=== PATIENT | female | born 1975 | race American Indian/Alaskan Native ===

== ENCOUNTER 2017-04-11 21:50 | Inpatient (IN) | payer OTHER ==
[2017-04-11] MEDS ORDERED: ZOFRAN ODT ONE (22:06)
[2017-04-11] MEDS ORDERED: ZOFRAN ODT PO ONE (22:09)
[2017-04-11 22:40] LABS: Alanine Aminotransferase 18 units/L (7-56); Albumin 4.2 g/dL (3.9-5); Alkaline Phosphatase 88 units/L (35-129); Anion Gap 20 mmol/L; Blood Urea Nitrogen 10 mg/dL (7-17); Calcium 9.5 mg/dL (8.4-10.2); Carbon Dioxide 23 mmol/L (22-30); Chloride 96.5 mmol/L (98-107); Glucose 126 mg/dL (65-100); Lipase 43 units/L (13-60); Potassium 3.9 mmol/L (3.6-5.0); Sodium 136 mmol/L (137-145); Total Protein 8.3 g/dL (6.3-8.2)
[2017-04-11 22:54] LABS: Basophils % (Auto) 0.6 % (0.0-1.8); Eosinophils % (Auto) 1.2 % (0.0-4.3); Hematocrit 36.4 % (30.3-42.9); Mean Corpuscular HGB Conc 33 % (30-34); Mean Corpuscular Hemoglobin 30 pg (28-32); Mean Corpuscular Volume 90 fl (79-97); Platelet Count 268 K/mm3 (140-440); Red Blood Count 4.03 M/mm3 (3.65-5.03); Red Cell Distribution Width 15.2 % (13.2-15.2); White Blood Count 4.8 K/mm3 (4.5-11.0)
[2017-04-12] MEDS ORDERED: NACL 0.9% 1000 ML 1,000 ML IV ONE ×2 (06:10→11:05)
[2017-04-12] MEDS ORDERED: ZOFRAN IV ONE (06:10)
[2017-04-12] MEDS ORDERED: MORPHINE IV ONE ×2 (06:12→12:15)
--- NOTE | 2017-04-12 06:43 | Emergency Department Report ---
HPI - General Chief Complaint: Nausea/Vomiting/Diarrhea Time Seen by Provider: 04/12/17 06:05 - HPI HPI: This is a 41-year-old Afro-[place] female presents to the emergency department from home with complaint of nausea, vomiting and generalized abdominal discomfort since about 4:00 yesterday afternoon after the patient ate ice cream from [employer]. She is not taking anything for symptoms prior to presentation. She has a past medical history of thyroidectomy and hypothyroidism. She has a history of tubal ligation and partial hysterectomy as well as previous history of gastric bypass. No recent travel or sick contacts at home. She has a primary care physician but has not been able to see them regarding her symptoms. ED Past Medical Hx - Past Medical History Hx Seizures: Yes Additional medical history: hypoglycemia, thyroid radiation - Surgical History Additional Surgical History: thyroidectomy,tubiligation,partial hysterecomy, gastric bypass - Social History Smoking Status: Never Smoker Substance Use Type: None - Medications Home Medications: Home Medications Medication Instructions Recorded Confirmed Last Taken Type Levothyroxine [Synthroid] 225 mcg PO QAM 04/12/17 04/12/17 Unknown History OXcarbazepine [Trileptal] 900 mg PO BID 04/12/17 04/12/17 Unknown History ED Review of Systems ROS: Stated complaint: ABD PAIN/CHILLS/LEG NUMBNESS Other details as noted in HPI Comment: All other systems reviewed and negative Constitutional: denies: chills, fever Eyes: denies: eye pain, eye discharge, vision change ENT: denies: ear pain, throat pain Respiratory: denies: cough, shortness of breath, wheezing Cardiovascular: denies: chest pain, palpitations Gastrointestinal: abdominal pain, nausea, vomiting Genitourinary: denies: urgency, dysuria, discharge Musculoskeletal: denies: back pain, joint swelling, arthralgia Skin: denies: rash, lesions Neurological: denies: headache, weakness, paresthesias Physical Exam - Physical Exam Vital Signs: Vital Signs 04/11/17 04/12/17 04/12/17 21:56 03:08 05:06 Temperature 98 F 97.8 F 98.3 F Pulse Rate 68 81 Respiratory 20 18 18 Rate Blood Pressure 142/84 120/77 Blood Pressure 110/74 [Right] O2 Sat by Pulse 97 100 100 Oximetry 04/12/17 05:11 Temperature Pulse Rate Respiratory 18 Rate Blood Pressure Blood Pressure [Right] O2 Sat by Pulse 100 Oximetry Physical Exam: GENERAL: The patient is well-developed well-nourished. HEENT: Normocephalic. Atraumatic. Extraocular motions are intact. Patient has moist mucous membranes. Pupils equal reactive to light bilaterally. NECK: Supple. Trachea is midline. CHEST/LUNGS: Clear to auscultation. There is no respiratory distress noted. HEART/CARDIOVASCULAR: Regular. There is no tachycardia. There is no gallop rub or murmur. ABDOMEN: Abdomen is soft. There is generalized tenderness to palpation of the abdomen. No guarding or rebound tenderness. Patient has normal bowel sounds. There is no abdominal distention. SKIN: There is no rash. There is no edema. There is no diaphoresis. NEURO: The patient is awake, alert, and oriented. The patient is cooperative. The patient has no focal neurologic deficits. The patient has normal speech. MUSCULOSKELETAL: There is no tenderness or deformity. There is no limitation range of motion. There is no evidence of acute injury. ED Course Vital Signs 04/11/17 04/12/17 04/12/17 21:56 03:08 05:06 Temperature 98 F 97.8 F 98.3 F Pulse Rate 68 81 Respiratory 20 18 18 Rate Blood Pressure 142/84 120/77 Blood Pressure 110/74 [Right] O2 Sat by Pulse 97 100 100 Oximetry 04/12/17 05:11 Temperature Pulse Rate Respiratory 18 Rate Blood Pressure Blood Pressure [Right] O2 Sat by Pulse 100 Oximetry ED Medical Decision Making - Lab Data Result diagrams: 04/11/17 22:07 04/11/17 22:07 - Radiology Data Radiology results: report reviewed, image reviewed interpreted by me: Abdominal x-ray shows non-specific nonobstructive bowel gas. CT ABDOMEN AND PELVIS WITH CONTRAST INDICATION: Abdominal pain. COMPARISON: None similar. FINDINGS: Abdomen and pelvis CT performed following intravenous administration of 100 cc of Omnipaque 300. LUNG BASES: Air filled distal esophageal prominence, nonspecific for gastroesophageal reflux and/or hiatal hernia, amongst others. No effusions. ABDOMEN: Minimal perihepatic ascites anteriorly, axial image 45, series 2. Post cholecystectomy slight central intrahepatic biliary prominence. CBD caliber at the curt hepatis estimated at 7 mm. Stomach, duodenum and proximal jejunum distended with fluid with abrupt caliber transition in the left mid abdomen near small bowel anastomosis site, axial series 2, images 161-206. Remainder nonopacified GI tract evaluation limited, though grossly nonobstructive. Mild colonic stool. Few postsurgical changes along the proximal stomach noted, more so superomedially as on axial images 57-92. Patent portal vein. Liver, spleen, pancreas, adrenals, nonaneurysmal abdominal aorta, IVC and kidneys otherwise within normal limits. No size significant adenopathy. Mesenteric root haziness however noted surrounding the patent SMA and its branches in the mid to lower abdomen as on axial images 175-260, amongst others. Mild similar retroperitoneal stranding/haziness as well. Slight twisting of the mesentery also not excluded in part postsurgical as on axial images 160-220, amongst others. Small fat-containing umbilical hernia with a transverse neck of 0.9 cm. PELVIS: Heterogeneous uterus with multiple fibroids, the largest solid towards the fundus approximately 3 cm, axial image 307 while a more inferior hypodense fibroid measuring 1.8 cm also seen, axial image 323. Small simple pelvic free fluid. Approximately 3.5 cm left adnexal/ovarian simple cyst. Grossly unremarkable urinary bladder and nonopacified rectosigmoid. Few small pelvic phleboliths. No size significant adenopathy. Bilateral SI joint degenerative changes/bridging spurring, left greater than right. Few other mild bony degenerative changes also noted. CONCLUSION: 1. Fluid distention of the stomach, duodenum and proximal jejunum leading up to the anastomosis in the left mid abdomen, as described with possible adhesions. Minimal ascites as also mesenteric and retroperitoneal haziness/fluid also noted, as above. 2. Postsurgical changes in the upper abdomen relating to the stomach as also cholecystectomy. Please correlate. 3. Various other findings, including distal esophageal prominence, small fat-containing umbilical hernia, fibroids and few bony degenerative changes, amongst others, as above. - Medical Decision Making 41-year-old female presents with nausea, vomiting and abdominal pain since yesterday after eating [employer] ice cream. The patient is been in the emergency department for almost 15 hours but I have been seeing her for the past 7 upon arrival for my shift. Patient has received IV fluid resuscitation, 3 different doses of nausea medication, 2 doses of pain medication, Pepcid for acid reflux and yet she continues to complain of significant abdominal discomfort that keeps her from being able to orally rehydrate herself. Her labs are mostly unremarkable but does show some signs of dehydration. X-ray of the abdomen as well as CT of the abdomen and pelvis does not show any acute process or any etiology of the patient's symptoms. She will be admitted to hospital for further evaluation, pain control, nausea medication and has been accepted for admission by the hospitalist, Dr. Flores. - Differential Diagnosis food poisoning, colitis, diverticulitis, gastritis, bowel obstruction Critical Care Time: No Critical care attestation.: If time is entered above; I have spent that time in minutes in the direct care of this critically ill patient, excluding procedure time. ED Disposition Clinical Impression: Intractable abdominal pain, Dehydration Intractable nausea and vomiting Qualifiers: Vomiting type: unspecified Qualified Code(s): R11.2 - Nausea with vomiting, unspecified Disposition: -09 OP ADMIT IP TO THIS HOSP Is pt being admited?: Yes Condition: Stable Referrals: PRIMARY CARE, [Primary Care Provider] - 3-5 Days Time of Disposition: 14:18
[2017-04-12] MEDS ORDERED: DILAUDID IV ONE ×2 (06:56→19:42)
--- NOTE | 2017-04-12 07:33 | XRay Report ---
ABDOMEN, 2 views: History: Abdominal pain. There is no evidence of free air beneath the diaphragms. The gas pattern within the abdomen is unremarkable. There is no evidence of bowel dilatation, significant air-fluid levels, or pathologic calcifications. Organ shadows are unremarkable. Cholecystectomy clips are noted. IMPRESSION: Unremarkable abdomen.
[2017-04-12] MEDS ORDERED: REGLAN ONE (08:05)
[2017-04-12] MEDS ORDERED: REGLAN IV ONE (08:10)
[2017-04-12] MEDS ORDERED: NACL ONE (08:15)
--- NOTE | 2017-04-12 09:46 | Cat Scan Report ---
CT ABDOMEN AND PELVIS WITH CONTRAST INDICATION: Abdominal pain. COMPARISON: None similar. FINDINGS: Abdomen and pelvis CT performed following intravenous administration of 100 cc of Omnipaque 300. LUNG BASES: Air filled distal esophageal prominence, nonspecific for gastroesophageal reflux and/or hiatal hernia, amongst others. No effusions. ABDOMEN: Minimal perihepatic ascites anteriorly, axial image 45, series 2. Post cholecystectomy slight central intrahepatic biliary prominence. CBD caliber at the curt hepatis estimated at 7 mm. Stomach, duodenum and proximal jejunum distended with fluid with abrupt caliber transition in the left mid abdomen near small bowel anastomosis site, axial series 2, images 161-206. Remainder nonopacified GI tract evaluation limited, though grossly nonobstructive. Mild colonic stool. Few postsurgical changes along the proximal stomach noted, more so superomedially as on axial images 57-92. Patent portal vein. Liver, spleen, pancreas, adrenals, nonaneurysmal abdominal aorta, IVC and kidneys otherwise within normal limits. No size significant adenopathy. Mesenteric root haziness however noted surrounding the patent SMA and its branches in the mid to lower abdomen as on axial images 175-260, amongst others. Mild similar retroperitoneal stranding/haziness as well. Slight twisting of the mesentery also not excluded in part postsurgical as on axial images 160-220, amongst others. Small fat-containing umbilical hernia with a transverse neck of 0.9 cm. PELVIS: Heterogeneous uterus with multiple fibroids, the largest solid towards the fundus approximately 3 cm, axial image 307 while a more inferior hypodense fibroid measuring 1.8 cm also seen, axial image 323. Small simple pelvic free fluid. Approximately 3.5 cm left adnexal/ovarian simple cyst. Grossly unremarkable urinary bladder and nonopacified rectosigmoid. Few small pelvic phleboliths. No size significant adenopathy. Bilateral SI joint degenerative changes/bridging spurring, left greater than right. Few other mild bony degenerative changes also noted. CONCLUSION: 1. Fluid distention of the stomach, duodenum and proximal jejunum leading up to the anastomosis in the left mid abdomen, as described with possible adhesions. Minimal ascites as also mesenteric and retroperitoneal haziness/fluid also noted, as above. 2. Postsurgical changes in the upper abdomen relating to the stomach as also cholecystectomy. Please correlate. 3. Various other findings, including distal esophageal prominence, small fat-containing umbilical hernia, fibroids and few bony degenerative changes, amongst others, as above. Thank you for the opportunity to participate in this patient's care.
[2017-04-12 10:08] LABS: Bacteria,Urine 1+ /HPF (Negative); Bilirubin,Urine NEG (Negative); Blood,Urine NEG (Negative); Ketones,Urine 20 mg/dL (Negative); Leukocyte Esterase,Urine NEG (Negative); Mucus,Urine 2+ /HPF; Nitrite,Urine NEG (Negative); Urobilinogen,Urine < 2.0 mg/dL (<2.0)
[2017-04-12] MEDS ORDERED: PEPCID IV ONE (11:05)
[2017-04-12] MEDS ORDERED: MORPHINE ONE (12:11)
[2017-04-12] MEDS ORDERED: DUONEB *Not for PRN Use IH (13:15)
[2017-04-12] MEDS ORDERED: TYLENOL PO PRN (13:15)
[2017-04-12] MEDS ORDERED: ZOFRAN IV PRN (13:15)
[2017-04-12] MEDS ORDERED: PROVENTIL IH PRN (13:26)
[2017-04-12] MEDS ORDERED: NACL 0.45% 1000 ML 1,000 ML IV SCH (14:00)
[2017-04-12] MEDS ORDERED: PROVENTIL IH SCH (14:00)
--- NOTE | 2017-04-12 14:50 | Admit Criteria Form ---
Admission Criteria Documentation: ABDOMINAL PAIN Clinical Indications for Admission to Inpatient Care (Place 'X' for any and all applicable criteria): Admission is indicated for ANY ONE of the following(1)(2)(3)(4)(5): [X ]I. Inpatient admission required rather than observation care (Also use Abdominal Pain: Observation Care, as appropriate) because of ANY ONE of the following: [X]a) Severe pain requiring acute inpatient management [ ]b) Identification of etiology/finding that requires inpatient care (eg, aortic dissection, free air) [ ]c) Absent bowel sounds with complete ileus(6) [ ]d) Suspected toxic megacolon [ ]e) Severe electrolyte abnormalities requiring inpatient care [ ]f) High fever or infection requiring inpatient admission as indicated by ANY ONE of following(7)(8): [ ] i) Appropriate outpatient or observational care antimicrobial treatment unavailable, not effective, or not feasible [ ] ii) Documented bacteremia [ ] iii) Temperature > 104.9 degrees F (oral) [ ] iv) T >103.1 F (oral) or < 96.8 F(rectal) that does not respond to all emergency treatment measures [ ]g) Signs of intestinal obstruction [B] [ ]h) Hemodynamic instability [ ]i) IV fluid to replace significant ongoing losses (greater than 3 L/m2 per day) (12)(13) [ ]j) Percutaneous or open drainage (eg, abscess, biliary tract ) procedures [ ]k) Parenteral nutrition regimen that must be implemented on inpatient basis [ ]l) Other condition,treatment or monitoring requiring inpatient admission. [ ]II. Peritoneal signs present [ ]III. Surgery needed that cannot be performed on an ambulatory basis. [ ]IV. Evaluation requires patient to not eat or drink for extended period ( eg, more than 24 hours). [ ]V. Contraindications and/or Inappropriate clinical situations for Observational Care in patients with abdominal pain, when ANY ONE of the following is required: [ ]a) Thorough evaluation is required to prevent catastrophic events due to delays in diagnosing (e.g.Mesenteric ischemia) 1,3 [ ]b) Patient with severe pathology or with chronic symptoms unlikely to improve in the ED stay (3) [ ]. General contraindications and/or Inappropriate clinical situations for Observational Care in patients with abdominal pain, when ANY ONE of the following is required: [ ]a) Prediction of prolongation of LOS based on ANY ONE of the following may be considered as a contraindication for observational care 2, 3, 4, 5, 6, 7, 8, 9, 10, 11 [ ]i) Age > 65 yrs. [ ]ii) Patient arriving by ambulance [ ]iii) Patient with high acuity [ ]iv) Patient requiring vital sign monitoring [ ]v) Patient on IV medication [ ]b) Systolic blood pressures 180mmHg 3,12 [ ]c) Patient with altered mental status including delirium and other alteration of consciousness, (3) [ ]d) Patient whose discharge disposition will be to a [facility] home or rehabilitation home should not be managed in Emergency Department Observation Unit. CMS rule requires 3 days hospital stay before such placement.3,13 [ ]e) Patient with failure to thrive due to broad array of etiologies 3,16,17 [ ]f) Inability to ambulate 3,14 Extended stay beyond goal length of stay may be needed for(2)(3): [ ]a) Persistent abdominal pain with suspected intra-abdominal process [ ]b) Diagnosed condition requiring continued stay (e.g., pancreatitis, complicated diverticulitis) [ ]c) Surgery (e.g., colectomy) The original [facility] content created by [employer] has been revised. The portions of the content which have been revised are identified through the use of italic text or in bold, and [facility] has neither reviewed nor approved the modified material.All other unmodified content is copyright [facility]. Please see references footnoted in the original [facility] edition 2016 Admission Criteria Met: Yes
[2017-04-12 22:37] VITALS: BP 114/77
[2017-04-12] MEDS ORDERED: DILAUDID IV PRN (23:35)
--- NOTE | 2017-04-13 00:02 | History and Physical Report ---
History of Present Illness Date of admission: 04/12/17 13:16 Chief complaint: Nausea and Vomiting History of present illness: 41 YO Female with Seizure Disorder, Hypothyroidism presents to ED for evaluation. Pt states that she has experienced 4-5 episodes of nausea and vomiting in the past day. Pt states that symptoms began around 1600 hrs yesterday after eating ice cream purchased from [employer]. Pt also complains of abdominal discomfort that began after multiple eposodes of nausea and vomiting. Pt denies fever, chills, CP, Palpitations, Syncope, recent ill contacts, BRBPR, Hematemesis, unintentional weight loss, night sweats, prolonged travel/ immobility, individual/family history of DVT/PE. Pt seen and evaluated in ED and found to be in no acute distress. Past History Past Medical History: hypothyroidism, seizures Past Surgical History: hysterectomy (Tubal ligation, Thyroidectomy), Other ( Gastric Bypass) Social history: single, lives with family. denies: smoking, alcohol abuse, prescription drug abuse, IV drug use Family history: hypertension Medications and Allergies Allergies Allergy/AdvReac Type Severity Reaction Status Date / Time No Known Allergies Allergy Verified 04/11/17 22:09 Home Medications Medication Instructions Recorded Confirmed Last Taken Type Levothyroxine [Synthroid] 225 mcg PO QAM 04/12/17 04/12/17 Unknown History OXcarbazepine [Trileptal] 900 mg PO BID 04/12/17 04/12/17 Unknown History Active Meds: Active Medications Acetaminophen (Tylenol) 650 mg PO Q4H PRN PRN Reason: Pain MILD(1-3)/Fever >100.5/HURD Albuterol (Proventil) 2.5 mg IH Q6HRT PRN PRN Reason: Wheezing Hydromorphone HCl (Dilaudid) 0.5 mg IV Q3H PRN PRN Reason: Pain , Severe (7-10) Last Admin: 04/12/17 23:55 Dose: 0.5 mg Sodium Chloride (Nacl 0.45% 1000 Ml) 1,000 mls @ 100 mls/hr IV DIRECT TOR Last Admin: 04/12/17 19:10 Dose: 100 mls/hr Ondansetron HCl (Zofran) 4 mg IV Q8H PRN PRN Reason: N/V unrelieved by Reglan Last Admin: 04/12/17 21:02 Dose: 4 mg Review of Systems Gastrointestinal: nausea, vomiting Exam - Constitutional Vitals: Temp Pulse Resp BP Pulse Ox 97.6 F 100 H 20 114/77 99 04/12/17 22:00 04/12/17 22:00 04/12/17 22:00 04/12/17 22:00 04/12/17 22:00 General appearance: Present: no acute distress - EENT Eyes: Present: PERRL ENT: hearing intact, clear oral mucosa - Neck Neck: Present: supple, normal ROM - Respiratory Respiratory effort: normal Respiratory: bilateral: CTA - Cardiovascular Heart Sounds: Present: S1 & S2. Absent: rub, click - Extremities Extremities: pulses symmetrical, No edema Peripheral Pulses: within normal limits - Abdominal General gastrointestinal: Present: soft, non-tender, non-distended, normal bowel sounds. Absent: hepatomegaly, splenomegaly, mass, hernia Female genitourinary: Present: normal - Rectal Rectal Exam: normal exam-external/orifice - Integumentary Integumentary: Present: clear, warm, dry - Musculoskeletal Musculoskeletal: gait normal, strength equal bilaterally - Psychiatric Psychiatric: appropriate mood/affect, intact judgment & insight - Neurologic Neurologic: CNII-XII intact, moves all extremities Results - Labs CBC & Chem 7: 04/11/17 22:07 04/11/17 22:07 Assessment and Plan - Patient Problems (1) Gastroenteritis Status: Acute Plan to address problem: Admit to medical floor, Xray Abdomen, CT Abdomen/Pelvis, IVF replacement, bowel rest, antiemetic therapy, repeat abdominal exam, supportive care, NGT for gastric decompression of worsening symptoms. (2) Seizure disorder Status: Acute Plan to address problem: Continue home medication, No reported seizures upon admission, continue current current therapy (3) Dehydration Status: Acute Plan to address problem: IVF replacement, monitor uop q shift, (4) Intractable nausea and vomiting Status: Acute Qualifiers: Vomiting type: unspecified Qualified Code(s): R11.2 - Nausea with vomiting , unspecified Plan to address problem: anti emetic therapy, IVF, (5) Ovarian cyst Status: Acute Plan to address problem: pain control, supportive care, (6) DVT prophylaxis Status: Acute
[2017-04-13] MEDS ORDERED: BREVIBLOC IV ONE (01:13)
--- NOTE | 2017-04-13 02:02 | Event Note ---
Date: 04/13/17 Responded to a CODE BLUE on the inpatient floor. On arrival, the patient was receiving assisted ventilations via bag valve mask and chest compressions were in progress. Nursing states that the patient stopped breathing. Patient was placed on the monitor showing a narrow complex rhythm. Compressions were stopped and a pulse was able to be palpated. Patient continued to be apneic and was subsequently intubated by respiratory therapy. Shortly after this, the patient's heart rate began to decrease and she went into asystole. CPR was restarted under my supervision. Patient received multiple doses of epinephrine. She also received calcium and sodium bicarbonate. Patient went into ventricular fibrillation and was defibrillated approximately 5 times. She was unable to be converted from ventricular fibrillation. Patient had 2 peripheral IVs, both of which became unusable during the code. I attempted to place a femoral central line, but was unable to feed the guidewire. At this point, the patient had been in ventricular fibrillation for approximately 45 minutes. Further efforts were deemed futile. Time of recorded at 0125. Attending hospitalist and family are at bedside.
--- NOTE | 2017-04-13 08:00 | XRay Report ---
AP CHEST: HISTORY: Endotracheal tube placement. AP view of the chest demonstrates a normal mediastinal and cardiac contour with clear lungs and normal bony and soft tissue structures. The endotracheal tube terminates 2.9 cm superior to the deneen. IMPRESSION: Unremarkable AP chest. Adequate placement of the endotracheal tube.
--- NOTE | 2017-04-13 08:01 | XRay Report ---
LUMBOSACRAL SPINE, FIVE VIEWS: HISTORY: Back pain. Views of the lumbosacral spine demonstrate normal bony alignment, vertebral height and interspace distances. There is straightening of the normal lordosis which could be related to muscular spasm. Oblique views show patent foramina and normal apophyseal joint alignment. IMPRESSION: Mild straightening of the normal lordosis. Otherwise, unremarkable lumbar spine films.
[2017-04-13] MEDS ORDERED: CORDARONE IV ONE (08:30)
[2017-04-13] MEDS ORDERED: SODIUM BICARBONATE IV ONE (08:30)
--- NOTE | 2017-04-16 08:22 | Death Summary ---
Summary - Providers Attending: JESUS VENTURA - summary Date of admission: 04/12/17 13:16 Date of : 04/13/17 Disposition: Pt admitted for gastroenteritis, Pt experienced seizure disorder complicated by acute hypoxemic respiratory failure. Pt found is asystolic arrest. Pt treated IAW ACLS protocol. Perfusing rhythm was not able to be obtained with ACLS protocol, and supportive care. Pt pronounced . - Final diagnosis (1) Gastroenteritis Note: Final diagnosis: (2) Seizure disorder Note: Final diagnosis: (3) Dehydration Note: Final diagnosis: (4) Intractable nausea and vomiting Qualifiers: Vomiting type: unspecified Qualified Code(s): R11.2 - Nausea with vomiting , unspecified Note: Final diagnosis: (5) Ovarian cyst Note: Final diagnosis: (6) DVT prophylaxis Note: Final diagnosis:
== END 2017-04-13 01:45 | DRG 391 ==
LOC: ED 21:50 → 3A 04-12 13:16 → CC1 04-13 00:51 → 3A 04-13 01:51
PROVIDERS: ADMIT Internal Medicine; ATTEND Internal Medicine
PROC: 0BH17EZ Insertion of Endotracheal Airway into Trachea, Via Natural or Artificial Opening (ICD-10-PCS; principal; 2017-04-13)
PROC: 5A12012 Performance of Cardiac Output, Single, Manual (ICD-10-PCS; principal; 2017-04-13)
DX: K52.9 Noninfective gastroenteritis and colitis, unspecified (principal); J96.01 Acute respiratory failure with hypoxia; I49.01 Ventricular fibrillation; E86.0 Dehydration; G40.909 Epilepsy, unspecified, not intractable, without status epilepticus; E89.0 Postprocedural hypothyroidism; Y83.8 Other surgical procedures as the cause of abnormal reaction of the patient, or of later complication, without mention of misadventure at the time of the procedure; N83.209 Unspecified ovarian cyst, unspecified side; Z98.51 Tubal ligation status; Z98.84 Bariatric surgery status; Z79.899 Other long term (current) drug therapy; Z90.710 Acquired absence of both cervix and uterus; I46.8 Cardiac arrest due to other underlying condition
CPT/HCPCS: 31500; 36415; 71010; 72110; 74020; 74177; 80053; 81001; 82962; 83690; 85025; 96361; 96374; 96375; 96376; J0282; J1170; J2270; J2405; J2765; J7030; Q0162; Q9967